=== PATIENT | male | born 1990 | race Caucasian/White ===

== ENCOUNTER 2019-02-05 02:30 | Emergency (ER) | payer OTHER ==
[~2019-02-05] VITALS: Ht 157.5 cm; Wt 52.2 kg
[2019-02-05 02:31] VITALS: BP_SYST 79
--- NOTE | 2019-02-05 02:32 | NUR ---
ED Nurse Note: PT brought in by ambulance from [place] for substance abuse with paranoid delusions. pt states he did meth ealier today. pt appears to be paranoid and has delusion of thinking people are after him.
[2019-02-05] MEDS ORDERED: Haloperidol 5mg/ml Inj IM ONE (02:45)
[2019-02-05] MEDS ORDERED: LORazepam Inj 2mg/ml 1ml IV ONE ×3 (02:45→03:45)
[2019-02-05] MEDS ORDERED: DiphenhydrAMINE 50mg/ml Inj IVP ONE (02:45)
--- NOTE | 2019-02-05 02:58 | NUR ---
ED Nurse Note: urine and blood sample sent down to lab
[2019-02-05 03:00] VITALS: BP 132/96
--- NOTE | 2019-02-05 03:01 | NUR ---
ED Nurse Note: [employer] officer is at bedside.
[2019-02-05 03:10] LABS: BASOPHILS % (AUTO) 1.8 % (0.0-2.0); EOSINOPHILS % (AUTO) 1.5 % (0.0-3.0); HEMATOCRIT 43.8 % (42.0-52.0); HEMOGLOBIN 15.2 G/DL (14.2-18.0); LYMPHOCYTES % (AUTO) 26.9 % (20.0-45.0); MEAN CORPUSCULAR VOLUME 87 FL (80-99); MONOCYTES % (AUTO) 7.7 % (1.0-10.0); NEUTROPHILS % (AUTO) 62.1 % (45.0-75.0); PLATELET COUNT 326 K/UL (150-450); RED BLOOD COUNT 5.02 M/UL (4.70-6.10); RED CELL DISTRIBUTION WIDTH 11.2 % (11.6-14.8); WHITE BLOOD COUNT 6.1 K/UL (4.8-10.8)
--- NOTE | 2019-02-05 03:15 | Emergency Room Report ---
History of Present Illness General Chief Complaint: Substance Abuse Source: Patient Present Illness HPI 28-year-old male history of anxiety, history of methamphetamine abuse, patient with a case manager specialist, patient was recently released, did methamphetamine prior to arrival, patient was agitated, paranoid, patient was brought in by EMS as well as long enforcement, patient states knocked me out. History is limited secondary to patient patient's paranoid delusions after taking methamphetamine. Severity is moderate, constant Allergies: Coded Allergies: No Known Allergies (Unverified , 02/05/19) Patient History Limited by: medical condition - Currently under meth Reviewed Nursing Documentation: PMH: Agreed; PSxH: Agreed Nursing Documentation-PMH Past Medical History: No History, Except For History Of Psychiatric Problem: Yes Review of Systems All Other Systems: limited - Currently intoxicated with meth Physical Exam Vital Signs Date Time Temp Pulse Resp B/P (MAP) Pulse Ox O2 Delivery O2 Flow Rate FiO2 02/05/19 02:29 98.6 145 26 98 Room Air 02/05/19 02:31 79/ Sp02 EP Interpretation: reviewed, normal General Appearance: alert, other - Anxious Head: normocephalic, atraumatic Eyes: bilateral eye PERRL, bilateral eye EOMI ENT: uvula midline, dry mucus membranes Neck: supple, thyroid normal, supple/symm/no masses Respiratory: lungs clear, no respiratory distress, no retraction, no accessory muscle use Cardiovascular #1: normal peripheral pulses, no edema, no gallop, no murmur, tachycardia Gastrointestinal: non tender, soft, no guarding, no rebound Musculoskeletal: normal inspection Neurologic: alert, oriented x3 Psychiatric: anxious Skin: no rash, warm/dry Medical Decision Making Diagnostic Impression: Primary Impression: Substance abuse Additional Impression: Methamphetamine abuse ER Course 28-year-old male presents after substance abuse, patient most likely exhibiting signs of paranoia due to methamphetamine abuse Patient given fluid resuscitation, Haldol, Ativan, Benadryl Patient with an elevated heart rate that has significantly improved, creatinine is also downtrending after fluid rehydration Patient is medically cleared Disposition to law enforcement Laboratory Tests Test 02/05/19 02:15 02/05/19 03:05 White Blood Count 6.1 K/UL (4.8-10.8) Red Blood Count 5.02 M/UL (4.70-6.10) Hemoglobin 15.2 G/DL (14.2-18.0) Hematocrit 43.8 % (42.0-52.0) Mean Corpuscular Volume 87 FL (80-99) Mean Corpuscular Hemoglobin 30.2 PG (27.0-31.0) Mean Corpuscular Hemoglobin Concent 34.6 G/DL (32.0-36.0) Red Cell Distribution Width 11.2 % (11.6-14.8) L Platelet Count 326 K/UL (150-450) Mean Platelet Volume 6.1 FL (6.5-10.1) L Neutrophils (%) (Auto) 62.1 % (45.0-75.0) Lymphocytes (%) (Auto) 26.9 % (20.0-45.0) Monocytes (%) (Auto) 7.7 % (1.0-10.0) Eosinophils (%) (Auto) 1.5 % (0.0-3.0) Basophils (%) (Auto) 1.8 % (0.0-2.0) Sodium Level 143 MMOL/L (136-145) 145 MMOL/L (136-145) Potassium Level 3.5 MMOL/L (3.5-5.1) 3.4 MMOL/L (3.5-5.1) L Chloride Level 105 MMOL/L (98-107) 114 MMOL/L (98-107) H Carbon Dioxide Level 21 MMOL/L (21-32) 22 MMOL/L (21-32) Anion Gap 17 mmol/L (5-15) H 9 mmol/L (5-15) Blood Urea Nitrogen 10 mg/dL (7-18) 8 mg/dL (7-18) Creatinine 1.6 MG/DL (0.55-1.30) H 1.1 MG/DL (0.55-1.30) Estimate Glomerular Filtration Rate 52.9 mL/min (>60) > 60 mL/min (>60) Glucose Level 112 MG/DL (74-106) H 83 MG/DL (74-106) Calcium Level 9.2 MG/DL (8.5-10.1) 7.3 MG/DL (8.5-10.1) #L Total Bilirubin 0.5 MG/DL (0.2-1.0) Aspartate Amino Transferase (AST) 44 U/L (15-37) H Alanine Aminotransferase (ALT) 101 U/L (12-78) H Alkaline Phosphatase 60 U/L (46-116) Total Protein 7.7 G/DL (6.4-8.2) Albumin 4.4 G/DL (3.4-5.0) Globulin 3.3 g/dL Albumin/Globulin Ratio 1.3 (1.0-2.7) Salicylates Level 3.3 ug/mL (2.8-20) Urine Opiates Screen Negative (NEGATIVE) Acetaminophen Level < 2 MCG/ML (10-30) L Urine Barbiturates Screen Negative (NEGATIVE) Phencyclidine (PCP) Screen Negative (NEGATIVE) Urine Amphetamines Screen Positive (NEGATIVE) H Urine Benzodiazepines Screen Negative (NEGATIVE) Urine Cocaine Screen Negative (NEGATIVE) Urine Marijuana (THC) Screen Positive (NEGATIVE) H Serum Alcohol < 3 mg/dL EKG Diagnostic Results EKG Time: 03:20 EP Interpretation: Sinus tachycardia, rate 107, QTc 507, no acute ST elevations , normal axis Rhythm Strip Diag. Results Rhythm Strip Time: 03:54 EP Interpretation: yes Rate: 97 Rhythm: NSR, no PVC's, no ectopy Last Vital Signs Date Time Temp Pulse Resp B/P (MAP) Pulse Ox O2 Delivery O2 Flow Rate FiO2 02/05/19 02:31 150 25 Room Air 02/05/19 02:31 98.6 79/ 98 Disposition: D/C TO LAW ENFORCEMENT IN [facility] Condition: Stable Departure Forms: Group Home Clearance Patient Instructions: Stimulant Use Disorder-Methamphetamines Additional Instructions: The patient was provided with discharge instructions, notified to follow-up with a primary care doctor and or specialist in the next 24-48 hours, and to return to the ED if they have worsening of their symptoms. Please note that this report is being documented using [employer] technology. This can lead to erroneous entry secondary to incorrect interpretation by the dictating instrument. Khari Greer MD Feb 05, 2019 03:15
--- NOTE | 2019-02-05 03:17 | NUR ---
ED Nurse Note: Received report from ANGIE Moore and assumed care, pt sleeping at this time, no sx distress noted, cms intact, noted multiple abrasions on upper and lower extremities, no active bleedings. [employer] at the bedside. sinus tach on surveillance monitor, will cont monitor.
--- NOTE | 2019-02-05 03:17 | NUR ---
ED Nurse Note: report given to ANGIE Graham
[2019-02-05 03:18] LABS: ANION GAP 17 mmol/L (5-15); BLOOD UREA NITROGEN 10 mg/dL (7-18); CALCIUM 9.2 MG/DL (8.5-10.1); CARBON DIOXIDE 21 MMOL/L (21-32); CHLORIDE 105 MMOL/L (98-107); CREATININE 1.6 MG/DL (0.55-1.30); POTASSIUM 3.5 MMOL/L (3.5-5.1); SODIUM 143 MMOL/L (136-145)
[2019-02-05 03:22] LABS: ALANINE AMINOTRANSFERASE 101 U/L (12-78); ALBUMIN 4.4 G/DL (3.4-5.0); ALBUMIN/GLOBULIN RATIO 1.3 (1.0-2.7); ALKALINE PHOSPHATASE 60 U/L (46-116); ASPARTATE AMINO TRANSFERASE 44 U/L (15-37); BILIRUBIN,TOTAL 0.5 MG/DL (0.2-1.0)
[2019-02-05 04:04] LABS: ANION GAP 9 mmol/L (5-15); BLOOD UREA NITROGEN 8 mg/dL (7-18); CALCIUM 7.3 MG/DL (8.5-10.1); CARBON DIOXIDE 22 MMOL/L (21-32); CHLORIDE 114 MMOL/L (98-107); CREATININE 1.1 MG/DL (0.55-1.30); POTASSIUM 3.4 MMOL/L (3.5-5.1); SODIUM 145 MMOL/L (136-145)
[2019-02-05] MEDS ORDERED: Calcium Gluconate 10% 1 GM in NS 110 ML IVPB ONE (04:15)
[2019-02-05 04:22] VITALS: BP 103/50
--- NOTE | 2019-02-05 05:03 | NUR ---
ER DISCHARGE NOTE: pt is cleared to be d/c per ERMD, pt discharge and aftercare instruction with summary of report provided, [facility] clearance form provided, pt advised to follow up with [facility] medical staff for continuity of care or return to ED if changes in condition, pt vss, resp even and unlabored on RA, no sx distress, calm and cooperative, [id number]. all belongings endorsed to [employer] officer. Pt accompanied [employer] officer to [facility]. iv d/c and id band removed. pt education done, pt advised to stop doing substance drugs.
[2019-02-05 05:05] VITALS: BP 120/76
== END 2019-02-05 05:15 ==
LOC: EDBD 02:30 → EMR 02:50
DX: F15.10 Other stimulant abuse, uncomplicated (principal); R00.0 Tachycardia, unspecified
CPT/HCPCS: 36415; 80048; 80053; 80307; 85025; 93005; 96361; 96365; 96372; 96375; 99284; G0480; J0610; J1200; J1630; J7030